=== PATIENT | female | born 1960 | race African-American/Black ===

== ENCOUNTER 2019-08-24 14:29 | Emergency (ER) | payer OTHER ==
[~2019-08-24] VITALS: Ht 165.1 cm; Wt 68.2 kg
[~2019-08-24 14:29] MED LIST: GLIP5 PO
[2019-08-24] MEDS ORDERED: INSULIN PEN SQ (15:16)
[2019-08-24] MEDS ORDERED: ASPI81 PO (15:16)
[2019-08-24] MEDS ORDERED: HTN MED PO (15:16)
[2019-08-24 15:25] LABS: GLUCOSE,POINT OF CARE 181 MG/DL (70-110)
[2019-08-24 20:34] LABS: APPEARANCE,URINE CLEAR (CLEAR); BILIRUBIN,URINE NEGATIVE (NEGATIVE); GLUCOSE, URINE (UA) NEGATIVE (NEGATIVE); KETONES,URINE NEGATIVE (NEGATIVE); LEUKOCYTE ESTERASE ,URINE NEGATIVE (NEGATIVE); NITRATE,URINE POSITIVE (NEGATIVE); OCCULT BLOOD,URINE TRACE (NEGATIVE); PH,URINE 5.5 (5.0-8.0); PROTEIN,URINE NEGATIVE (NEGATIVE); UROBILINOGEN,URINE 0.2 mg/dL (<=1.0)
[2019-08-24 20:40] LABS: BACTERIA,URINE Many /HPF (None Seen); RBC,URINE 0-2 /HPF (0-2); SQUAMOUS EPITHELIAL CELL,UR Few /LPF (None Seen); WBC,URINE 0-2 /HPF (0-5)
[2019-08-24 21:00] VITALS: BP 140/78
[2019-08-24] MEDS ORDERED: CefTRIAXone 1 GM/DEXTROSE 50 ML IV ONE (21:00)
[2019-08-24] MEDS ORDERED: CefTRIAXone SODIUM 1 GM/VIAL IM ONE (21:15)
[2019-08-24] MEDS ORDERED: LIDOCAINE/PF 1% 2 ML VIAL IM ONE (21:15)
== END 2019-08-24 21:47 | disposition home or self-care (01) ==
LOC: EMS 14:30
DX: S60.351A Superficial foreign body of right thumb, initial encounter (principal); N39.0 Urinary tract infection, site not specified; E11.9 Type 2 diabetes mellitus without complications; I10 Essential (primary) hypertension; G89.29 Other chronic pain; Z79.82 Long term (current) use of aspirin; Z79.4 Long term (current) use of insulin; W25.XXXA Contact with sharp glass, initial encounter; Y93.89 Activity, other specified; Y92.038 Other place in apartment as the place of occurrence of the external cause; Y99.8 Other external cause status
CPT/HCPCS: 81001; 82962; 87077; 87086; 87186; 96372; 99284; J0696; J3490